=== PATIENT | female | born 1955 ===

== ENCOUNTER 2025-01-25 11:09 | Emergency (ER) | payer OTHER ==
[~2025-01-25] VITALS: Ht 170.2 cm; Wt 79.4 kg
[2025-01-25 11:20] VITALS: BP 145/89; O2SAT 96
[2025-01-25] MEDS ORDERED: OMEPRAZOLE MAGN20 MG (11:22)
[2025-01-25] MEDS ORDERED: PROAIR RESPICL90 MCG (11:22)
[2025-01-25] MEDS ORDERED: FLUOXETINE HCL10 MG PO (11:22)
[2025-01-25] MEDS ORDERED: DRAMAMINE LESS25 MG (11:23)
[2025-01-25] MEDS ORDERED: GRALISE600 MG PO (11:23)
[2025-01-25] MEDS ORDERED: METHYLPREDNISOLONE SOD SUCC 125 MG VIAL IV ONE (12:30)
[2025-01-25] MEDS ORDERED: IPRATROPIUM/ALBUTEROL SULFATE 3 ML AMPUL.NEB IH SCH (12:30)
[2025-01-25] MEDS ORDERED: GUAIFENESIN/DEXTROMETHORPHAN 100MG/10ML BLIST.PACK PO ONE (12:30)
[2025-01-25] MEDS ORDERED: BUDESONIDE 0.5 MG/2 ML AMPUL.NEB IH ONE (12:45)
[2025-01-25] MEDS ORDERED: MAGNESIUM SULFATE IN WATER 50 ML IV ONE (12:45)
[2025-01-25 13:03] LABS: BASO % 0.4 % (0.1-1.2); EOS # 0.04 (0.04-0.54); EOS % 0.5 % (0.7-7.0); LYMPH # 1.15 (1.18-3.74); LYMPH % 14.9 % (19.3-53.1); MEAN PLATELET VOLUME 10.30 fl (9.4-12.4); MONO # 0.39 (0.24-0.82); MONO % 5.1 % (4.7-12.5); NEUT # 6.09 (1.56-6.13); NEUT % 78.8 % (34.0-71.1); RED CELL DISTRIBUTION WIDTH 13.7 % (11.6-14.4)
[2025-01-25 13:41] LABS: COVID-19 AG NEGATIVE (NEGATIVE)
[2025-01-25 14:28] LABS: ABG PH 7.426 (7.35-7.45); ABG PO2 86.0 mmHg (80-100); BICARBONATE 22.0 mmol/l (23-25)
[2025-01-25 14:29] LABS: o2 21 %
[2025-01-25] MEDS ORDERED: AZITHROMYCIN500 MG PO (15:18)
[2025-01-25] MEDS ORDERED: GILTUSS COUGH-118 M1 PO (15:18)
[2025-01-25] MEDS ORDERED: ACETAMINOPHEN500 M1 PO (15:18)
== END 2025-01-25 15:57 | disposition home or self-care (01) ==
LOC: ER 11:57
PROVIDERS: Preventive Medicine Public Health & General Preventive Medicine
DX: J06.9 Acute upper respiratory infection, unspecified (principal); R05.9 Cough, unspecified; Z20.822 Contact with and (suspected) exposure to COVID-19; Z88.3 Allergy status to other anti-infective agents
CPT/HCPCS: 36415; 71046; 82803; 96365; 96366; 99283; J2270; J3490